=== PATIENT | female | born 1980 | race Caucasian/White ===

== ENCOUNTER 2017-07-07 15:18 | Emergency (ER) | payer OTHER ==
[~2017-07-07] VITALS: Ht 154.9 cm; Wt 69.4 kg
[~2017-07-07 15:18] MED LIST: ACET325; AMOCLA875 PO; DIPH50; ESCI10; ESTR2 PO; Flomax0.4 MG PO; HYDACE5; HYDACE5 PO; HYDACE7.5 PO; KETO10 PO; MEDR10; MEDR5; NAPR220; Norco 5-325 Ta1 EACH PO; ONDA8ODT MM; OXYACE5T PO; PROM25 PO; Percocet 5-3251 EACH PO; RXHYDACE PO; SERT100 PO; Zithromax250 MG PO; Zofran Odt8 MG SL
[2017-07-07] MEDS ORDERED: Norco 5-325 Ta1 EACH PO (15:45)
[2017-07-07] MEDS ORDERED: CYCL10 PO (15:45)
[2017-09-24] MEDS ORDERED: VARE1 PO (11:19)
[2017-09-24] MEDS ORDERED: Diclofenac Pota50 MG PO (11:19)
[2017-09-24] MEDS ORDERED: DULO60 (11:19)
[2018-04-07] MEDS ORDERED: Chantix1 EACH (17:22)
[2018-04-07] MEDS ORDERED: IBUP400 PO (17:23)
[2018-04-07] MEDS ORDERED: Naprosyn500 MG PO (20:24)
[2018-04-07] MEDS ORDERED: CYCL10 PO (20:25)
[2018-04-07] MEDS ORDERED: Norco 5-325 Ta1 EACH PO (20:25)
== END 2017-07-07 15:49 | disposition home or self-care (01) ==
LOC: ER 15:18
DX: M25.511 Pain in right shoulder (principal); Z91.040 Latex allergy status; Z88.8 Allergy status to other drugs, medicaments and biological substances; Z79.899 Other long term (current) drug therapy; Z79.2 Long term (current) use of antibiotics; F32.9 Major depressive disorder, single episode, unspecified; Z87.891 Personal history of nicotine dependence
CPT/HCPCS: 99283

== ENCOUNTER → 2018-06-29 | Outpatient (CLI) | payer OTHER ==
[~2018-06-29] MED LIST changes: +CYCL10 PO; +Chantix1 EACH; +DULO60; +Diclofenac Pota50 MG PO; +IBUP400 PO; +Naprosyn500 MG PO; +VARE1 PO
[2018-07-03 05:06] LABS: COTININE Negative ng/mL (Cutoff=300)
== END | disposition home or self-care (01) ==
LOC: LAB 15:16 → LAB SHORT 15:16
PROVIDERS: Orthopaedic Surgery
DX: F17.200 Nicotine dependence, unspecified, uncomplicated (principal)

== ENCOUNTER 2018-07-25 10:13 | Day surgery (SDC) | payer OTHER ==
[~2018-07-25] VITALS: Ht 154.9 cm; Wt 78.0 kg
[~2018-07-25 10:13] MED LIST changes: +Advil200 M1 PO; +DULO60 PO; +HYDR1TAB94 PO; +THERA1 EACH PO
--- NOTE | 2018-07-25 12:03 | NUR ---
07/25/18 1203 Lola Francis RN UPDATED PT REGARDING THE DELAY IN HER PROCEDURE. BED ADJUSTED FOR COMFORT. WARM BLANKETS OFFERRED. CALL LIGHT IN REACH.
--- NOTE | 2018-07-25 14:58 | NUR ---
07/25/18 1458 Alessandra Carrera V PT RESTING IN RECLINER, CALL LIGHT WITHIN REACH, VSS. PT TOLERATING PO NURISHMENTS. PT DENIES PAIN AND NAUSEA AT THIS TIME. POLAR CARE INITIATED.
== END 2018-07-25 15:34 | disposition home or self-care (01) ==
LOC: ORSCSDS 10:13
PROVIDERS: Orthopaedic Surgery
PROC: 0RNJ4ZZ Release Right Shoulder Joint, Percutaneous Endoscopic Approach (ICD-10-PCS; principal; 2018-07-25 11:30)
PROC: 0LQ14ZZ Repair Right Shoulder Tendon, Percutaneous Endoscopic Approach (ICD-10-PCS; principal; 2018-07-25 11:30)
DX: M75.41 Impingement syndrome of right shoulder (principal); M75.31 Calcific tendinitis of right shoulder; M75.51 Bursitis of right shoulder; Z87.891 Personal history of nicotine dependence; E66.9 Obesity, unspecified; Z68.32 Body mass index [BMI] 32.0-32.9, adult; Z79.899 Other long term (current) drug therapy
CPT/HCPCS: C1713; J0171; J0690; J1100; J1885; J2250; J2405; J2710; J3010; J7120

== ENCOUNTER 2019-02-14 12:44 | Emergency (ER) | payer OTHER ==
[~2019-02-14] VITALS: Ht 152.4 cm; Wt 70.3 kg
[~2019-02-14 12:44] MED LIST changes: -AMIT10 PO; -ESTRADIOL1 MG PO; -Naproxen500 MG PO; -ONDA4ODT MM
[2019-02-14 14:28] LABS: BASOPHILS ABSOLUTE AUTO 0.05 K/mm3 (0.00-0.23); BASOPHILS PERCENT AUTO 0 % (0-2); EOSINOPHILS ABSOLUTE AUTO 0.21 K/mm3 (0.00-0.68); EOSINOPHILS PERCENT AUTO 1 % (0-6); Hematocrit 26.8 % (33.0-51.0); Hemoglobin 8.1 g/dL (11.5-16.0); IMMATURE GRAN ABSOLUTE AUTO 0.11 K/mm3 (0.00-0.10); IMMATURE GRAN PERCENT AUTO 1 % (0-1); International Normalized Ratio 0.99; LYMPHOCYTES ABSOLUTE AUTO 1.73 K/mm3 (0.84-5.20); LYMPHOCYTES PERCENT AUTO 10 % (21-46); MONOCYTES ABSOLUTE AUTO 1.16 K/mm3 (0.16-1.47); MONOCYTES PERCENT AUTO 7 % (4-13); Mean Corpuscular HGB Conc 30.2 g/dL (31.5-36.5); Mean Corpuscular Volume 76 fL (80-100); NEUTROPHILS ABSOLUTE AUTO 13.94 K/mm3 (1.96-9.15); NEUTROPHILS PERCENT AUTO 81 % (41-73); Platelet Count 439 K/mm3 (150-400); Prothrombin Time Results 10.5 Sec (9.7-11.5); RDW Coefficient Variation 17.6 % (11.7-14.2); Red Blood Cell Count 3.52 M/mm3 (3.80-5.20)
[2019-02-14 14:38] LABS: Alanine Aminotransfer (ALT/SGP 23 U/L (12-78); Albumin, Blood 3.6 g/dL (3.4-5.0); Albumin/Globulin Ratio 0.8 (0.8-1.8); Alk Phos 108 U/L (50-136); Anion Gap 6 mmol/L (6-16); Aspartate Aminotrans (AST/SGOT 23 U/L (12-37); Bilirubin, Total 0.2 mg/dL (0.1-1.0); Blood Urea Nitrogen 11 mg/dL (8-24); Bun/Creatinine Ratio 13.9 (12.0-20.0); CO2, Blood 24 mmol/L (21-32); Calcium, Blood 9.2 mg/dL (8.5-10.1); Chloride, Blood 108 mmol/L (98-108); Creatinine, Blood 0.79 mg/dL (0.40-1.00); Globulin, Blood 4.3 g/dL (2.2-4.0); Glomerular Filtration Rate >60 (60-); Glucose, Blood 102 mg/dL (70-99); Potassium, Blood 3.9 mmol/L (3.5-5.5); Sodium, Blood 138 mmol/L (136-145); Total Protein, Blood 7.9 g/dL (6.4-8.2)
[2019-02-14 20:08] LABS: Glucose, CSF 58 mg/dL (40-70)
[2019-02-14 20:32] LABS: RBC Count, CSF 383 /mm3 (0-0)
[2019-02-14 20:33] LABS: Appearance, CSF Clear (Clear); Color, CSF No Color (No Color); WBC Count, CSF 0 /mm3 (0-5)
[2019-02-14 20:47] LABS: RBC Count, CSF 2 /mm3 (0-0); WBC Count, CSF 0 /mm3 (0-5)
[2019-02-14 20:49] LABS: Appearance, CSF Clear (Clear); Color, CSF No Color (No Color)
[2019-02-14] MEDS ORDERED: AMIT10 PO (21:01)
[2019-02-14] MEDS ORDERED: Naproxen500 MG PO (21:01)
[2019-02-14] MEDS ORDERED: ESTRADIOL1 MG PO (21:02)
[2019-02-14 21:05] LABS: Source, Urine Clean Catch
[2019-02-14 21:14] LABS: Cryptococcus Neoformans/Gattii Not Detected (NOT DETECT); Enterovirus Not Detected (NOT DETECT); Escherichia Coli K1 Not Detected (NOT DETECT); Haemophilus Influenza Not Detected (NOT DETECT); Herpes Simplex Virus 1 Not Detected (NOT DETECT); Herpes Simplex Virus 2 Not Detected (NOT DETECT); Human Herpesvirus 6 Not Detected (NOT DETECT); Human Parechovirus Not Detected (NOT DETECT); Listeria Monocytogenes Not Detected (NOT DETECT); Neisseria Meningitidis Not Detected (NOT DETECT); Streptococcus Agalactiae Not Detected (NOT DETECT); Streptococcus Pneumoniae Not Detected (NOT DETECT); Varicella Zoster Virus Not Detected (NOT DETECT)
[2019-02-14 21:15] LABS: Bilirubin, Urine Neg (Neg); Blood, Urine 2+ (Neg); Glucose Qualitative, Urine Neg (Neg); Ketones, Urine 1+ (Neg); Leukocyte Esterase, Urine Neg (Neg); Nitrite, Urine Neg (Neg); Protein, Urine 2+ (Neg); Specific Gravity, Urine 1.025 (1.003-1.022); Urobilinogen, Urine NORM (Normal)
[2019-02-14 21:28] LABS: Appearance, Urine Hazy (Clear); Color, Urine Yellow (P-Yellow)
[2019-02-14 21:29] LABS: Bacteria Few /hpf; Mucus Heavy ({null, 0-Heavy}); Squamous Epithelial Cells Mod /hpf (Few); White Blood Cells, Urine 0-2 /hpf (0-5)
[2019-02-14] MEDS ORDERED: IBUP400 PO (21:40)
[2019-02-14] MEDS ORDERED: Percocet 5-3251 EACH PO (21:54)
[2019-02-14] MEDS ORDERED: ONDA4ODT MM (21:54)
== END 2019-02-14 22:10 | disposition home or self-care (01) ==
LOC: ER 12:44
PROVIDERS: Emergency Medicine; Physician Assistant
DX: J02.9 Acute pharyngitis, unspecified (principal); M54.2 Cervicalgia; Z91.040 Latex allergy status; Z88.8 Allergy status to other drugs, medicaments and biological substances; Z91.048 Other nonmedicinal substance allergy status; Z79.899 Other long term (current) drug therapy; F32.9 Major depressive disorder, single episode, unspecified; Z87.891 Personal history of nicotine dependence; M43.6 Torticollis
CPT/HCPCS: 36415; 62270; 70450; 80053; 81001; 82272; 82945; 83605; 84157; 85025; 85610; 85730; 86308; 87040; 87070; 87086; 87205; 87483; 89051; 93005; 93010; 96374-59; 96375-59; 96376-59; 99284-25; A9270; A9270-GY; J1170; J1885; J2405

== ENCOUNTER → 2019-02-14 | Outpatient (CLI) | payer OTHER ==
[~2019-02-14] MED LIST changes: +AMIT10 PO; +ESTRADIOL1 MG PO; +Naproxen500 MG PO; +ONDA4ODT MM
== END | disposition home or self-care (01) ==
LOC: LAB 10:16 → LAB SHORT 10:16
DX: J02.9 Acute pharyngitis, unspecified (principal); M43.6 Torticollis
CPT/HCPCS: 87081; 87147